=== PATIENT | female | born 1990 | race Caucasian/White ===

== ENCOUNTER 2017-10-05 00:54 | Emergency (ER) | END 2017-10-05 05:50 | disposition left against medical advice (07) ==

== ENCOUNTER 2018-04-02 19:13 | Emergency (ER) | END 2018-04-02 21:52 | disposition home or self-care (01) ==

== ENCOUNTER 2018-07-06 17:59 | Emergency (ER) | END 2018-07-06 20:00 | disposition home or self-care (01) ==